=== PATIENT | female | born 1940 | race Caucasian/White ===

== ENCOUNTER 2025-05-16 11:22 | Emergency (ER) | payer MEDICARE, SELFPAY ==
--- NOTE | ~2025-05-16 | CT_ITS ---
CLINICAL HISTORY: LLQ Pain; R o divertic CT abdomen and pelvis with contrast Comparison: None provided Findings: Lung bases are clear. No acute bony abnormalities. Degenerative change spine and bilateral hips. Findings are greatest in the right hip joint. Prior right hip fracture repair hardware noted. Large paraesophageal hiatal hernia partially visualized. Small presumed hepatic cysts scattered throughout liver. No significant focal abnormality in liver or spleen. Pancreas and adrenal glands unremarkable. Cholelithiasis without gallbladder distention. No significant focal renal abnormalities. No renal stones or hydronephrosis. Abdominal aorta is normal in caliber. No free fluid or adenopathy in the pelvis. No diverticulitis. Appendix unremarkable. Hysterectomy. No adnexal abnormality. Impression: No acute process This document has been electronically signed by: Lucas Duarte MD on 05/16/2025 20:24:14
[2025-05-16 11:37] VITALS: BP 113/69; PULSE 104; RESP 16; TEMP 36.5; O2SAT 95; BMI 25.9
--- NOTE | 2025-05-16 11:38 | ED.GENADULT ---
HPI - General Adult General Chief complaint: Nausea/Vomiting/Diarrhea Stated complaint: diarrhea Time Seen by Provider: 05/16/25 18:07 Source: patient Mode of arrival: ambulatory Limitations: no limitations History of Present Illness ED Provider: Dami GUERIN HPI narrative: The patient is an 84-year-old female presenting to the ED reporting since Tuesday she has been experiencing watery brown diarrhea without associated hematochezia, melena, nausea, vomiting, chest pain, shortness of breath, fever/chills, or recent sick contacts. The patient reports she was able to eat toast the 1st few days however over the past 1-2 days has only been tolerating p.o. fluids. The patient denies any recent hospital admission or antibiotic use, reports remote history of hysterectomy, denies other surgical abdominal history. The patient denies associated hematuria or dysuria, but does report urinary frequency which she is attributing to coffee intake. Related Data Previous Rx's ?Medication ?Instructions ?Recorded acetaminophen 500 mg capsule 1,000 mg (2 x 500 mg) PO .q8 PRN 05/16/25 fever or pain #30 caps cephalexin 500 mg capsule 500 mg PO BID #14 caps 05/16/25 ibuprofen 600 mg tablet 600 mg PO Q8H PRN fever or pain 05/16/25 #30 tabs Allergies Allergy/AdvReac Type Severity Reaction Status Date / Time No Known Allergies Allergy Verified 05/16/25 11:41 Review of Systems Review of Systems: Yes all other systems are reviewed and are negative PMFSH Social History Social History Smoked in Last 30 Days: No Use of substances other than those prescribed or required for medical reasons: No Advance Directives: No Advance Directives Information Provided: No Do you have a plan to hurt others: No Plan Physical Exam ED Vital Signs: Vital Signs - 24 hr 05/16/25 11:37 05/16/25 17:45 05/16/25 20:01 Temperature 97.7 F 97.7 F 97.5 F Pulse Rate 104 H 80 94 Respiratory Rate 16 22 H 15 Blood Pressure 113/69 139/69 130/75 Pulse Oximetry 95 97 98 Oxygen Delivery Method Room Air Room Air Room Air BMI result Body Mass Index 25.9 CONSTITUTIONAL: The patient appears non-toxic, well nourished and in no acute distress. Vital signs as documented. HEAD: Atraumatic, normocephalic. EYES: EOMs grossly intact, pupils equal, conjunctiva clear, no exudate. ENT: Nares patent, no discharge. Airway patent, no audible stridor, visible mucosa is pink and moist without noted lesions. NECK: Trachea is midline, no obvious masses or gross abnormalities. CHEST: Symmetric movement, normal appearance. LUNGS: LS present and CTAB, no w/r/r. Non-labored work of breathing. CARDIAC: Regular Rhythm, S1/S2 appreciated, no murmurs, rubs or gallops. ABDOMEN: Abdomen soft x4 quadrants, positive tenderness to palpation of the left lower quadrant, negative rebound, no palpable masses or organomegaly. Negative CVAT bilaterally. : Deferred. EXTREMITIES: Normal tone, moves all extremities spontaneously without reported pain. No obvious acute injury or deformity noted. NEURO: Alert and oriented x3, CN II-XII appear grossly intact. Cerebellar Functioning grossly intact. No obvious sensory or motor deficits. Speech clear and appropriate. PSYCH: normal affect, appropriate eye contact, fluid speech, with appropriate response to questioning. No reported suicidality or homicidality. SKIN: Warm, dry, color appropriate, normal turgor. No rashes noted. Course Course Course Narrative: This is a rapid medical exam performed by Emery Rae NP: Additional HPI, ROS, PE not included below will be deferred to primary provider. Patient is an 84y/o F with reported hx of hypothyroid, HTN, high cholesterol presenting with complaint of diarrhea for the past 4 days. Denies nausea/vomiting. Lower abdominal pain. Denies recent abx use. Plan: labs, UA Medications Administered Discontinued Medications Generic Name Dose Route Start Last Admin Trade Name Murrayq PRN Reason Stop Dose Admin Ceftriaxone Sodium 1 gm 05/16/25 18:50 05/16/25 19:13 Ceftriaxone Sodium 1 Gm Vial IVPUSH 05/16/25 18:51 1 gm ONCE ONE Administration Sodium Chloride 1,000 mls @ 999 mls/hr 05/16/25 18:45 05/16/25 19:43 Ns IV 05/16/25 19:45 Infused .Q1H1M GUEVARA Infusion Sodium Chloride 1,000 mls @ 999 mls/hr 05/16/25 19:00 05/16/25 20:45 Ns IV 05/16/25 20:00 Infused .Q1H1M GUEVARA Infusion Iohexol 85 ml 05/16/25 19:04 05/16/25 19:05 Iohexol 350 Mg/Ml 100 Ml Infus..Btl IV 05/16/25 19:05 85 ml ONCE ONE Administration Medical Decision Making Medical Decision Making [facility] Narrative: 6:46 PM 05/16/2025 (Shoaib GUERIN): The the patient is an 84-year-old female presenting to the ED for evaluation of 4 days of nonbloody diarrhea without associated fever, vomiting, or nausea. The patient in the ED is well-appearing, exam reveals mild left lower quadrant abdominal tenderness, negative CVA tenderness. Patient has laboratory evaluation shows leukocytosis of 14.9, no anemia or electrolyte abnormality. The patient's lactic acid is 1.7, renal function appears mildly impaired with BUN 26 creatinine 1.46, no old for comparison. The patient's viral swab is negative. Patient's UA shows leukocyte esterase, WBCs, and 4+ bacteria. Patient may be suffering from UTI versus diverticulitis. Patient arrives to the ED tachycardic but normotensive, suspect patient's renal function and tachycardia is secondary to fluid dehydration from recurrent diarrhea and not sepsis from UTI. The patient will receive IV fluid hydration, we will begin empiric Rocephin for suspected UTI, however given the patient's equivocal left lower quadrant tenderness we will obtain CT abdomen and pelvis to rule out diverticulitis. 9:45 PM 05/16/2025 (Shoaib GUERIN): The patient's CT was obtained and shows no acute intra-abdominal pathology, no colitis or evidence of diverticulitis. While awaiting CT results the patient experienced 2 episodes of diarrhea, RN advised it was quite malodorous, sample was sent for C diff testing. The patient's C diff testing is now returned and is negative. The patient continues to be well-appearing, afebrile, and normotensive, we will discharge with cephalexin for UTI and recommend outpatient follow-up with strict return instructions.. Admission/Observation Consideration of admission/observation: Escalation of care including admission/observation considered Lab Data [facility] Lab Attestation statement: I reviewed the patient's lab results. 05/16/25 12:37 05/16/25 12:37 Labs: Lab Results 05/16/25 05/16/25 05/16/25 Range/Units 12:35 12:37 17:50 WBC 14.9 H (4.8-10.8) X10*3/uL RBC 5.51 H (4.20-5.50) X10*6/uL Hgb 16.8 H (12.0-16.0) g/dl Hct 48.3 H (37.0-47.0) % MCV 87.7 (80.0-98.0) fL MCH 30.5 (27.0-33.0) pg MCHC 34.8 (31.0-35.0) g/dl RDW 12.7 (11.0-16.0) % Plt Count 355 (160-400) X10*3/uL MPV 9.1 L (9.4-12.3) fL Immature Gran % (Auto) 0.4 (0.0-0.4) % Neut % (Auto) 85.1 H (45-73) % Lymph % (Auto) 7.4 L (20-40) % Antelope % (Auto) 6.3 (2-11) % Eos % (Auto) 0.5 (0-4) % Baso % (Auto) 0.3 (0-2) % Lymph # (Auto) 1.1 L (1.2-4.9) X10*3/uL Antelope # (Auto) 0.9 (0.1-1.2) X10*3/uL Eos # (Auto) 0.1 (0.0-0.4) X10*3/uL Baso # (Auto) 0.0 (0.0-0.2) X10*3/uL Abs Immat Gran (auto) 0.06 H (0.00-0.03) X10*3/uL Absolute Neuts (auto) 12.7 H (2.0-8.3) x10*3/uL Absolute Nucleated RBC 0.000 (0.0-0.012) X10*3/uL Nucleated RBC % (auto) 0.0 (0.0-0.2) /100WBC Sodium 136 (135-145) mmol/L Potassium 4.4 (3.3-5.1) mmol/L Chloride 106 (96-108) mmol/L Carbon Dioxide 20 L (22-29) mmol/L Anion Gap 14 (12-20) BUN 26 H (9-16) mg/dL Creatinine 1.46 H (0.5-1.4) mg/dL Estim Creat Clear Calc 21.4 Estimated GFR 34 Random Glucose 120 H (60-115) mg/dL Lactic Acid 1.7 (0.5-2.0) mmol/L Calcium 8.9 (8.4-10.2) mg/dL Magnesium 2.0 (1.6-2.6) mg/dL Total Bilirubin 0.6 (0.0-1.0) mg/dL AST 24 (5-31) U/L ALT < 6 (0-31) U/L Alkaline Phosphatase 81 (39-117) U/L Total Protein 6.3 L (6.5-8.0) g/dL Albumin 3.8 (3.5-5.0) g/dL Urine Color Dark Yellow Urine Appearance Cloudy Urine pH 5.5 (5.0-9.0) Ur Specific [place] 1.020 (1.005-1.025) Urine Protein 100 (2+) H (Neg-Trace) mg/dL Urine Glucose (UA) Negative (Negative) mg/dL Urine Ketones 40 (Negative) mg/dL Urine Blood Negative (Negative) Urine Nitrite Negative (Negative) Ur Leukocyte Esterase Large (3+) H (Negative) Urine RBC 0-2 (0-2) /HPF Urine WBC 21-50 H (0-5) /HPF Ur Squamous Epith Cells 11-20 (0-2) /HPF Urine Bacteria 4+ (None Seen) Hyaline Casts >20 (0-2) /LPF C. difficile Tox B Gene (Negative) Influenza Type A (PCR) NEGATIVE (Negative) Influenza Type B (PCR) NEGATIVE (Negative) RSV RNA Qual (PCR) NEGATIVE (Negative) SARS-CoV-2 RNA (RT-PCR) NEGATIVE (Negative) 05/16/25 Range/Units 20:46 WBC (4.8-10.8) X10*3/uL RBC (4.20-5.50) X10*6/uL Hgb (12.0-16.0) g/dl Hct (37.0-47.0) % MCV (80.0-98.0) fL MCH (27.0-33.0) pg MCHC (31.0-35.0) g/dl RDW (11.0-16.0) % Plt Count (160-400) X10*3/uL MPV (9.4-12.3) fL Immature Gran % (Auto) (0.0-0.4) % Neut % (Auto) (45-73) % Lymph % (Auto) (20-40) % Antelope % (Auto) (2-11) % Eos % (Auto) (0-4) % Baso % (Auto) (0-2) % Lymph # (Auto) (1.2-4.9) X10*3/uL Antelope # (Auto) (0.1-1.2) X10*3/uL Eos # (Auto) (0.0-0.4) X10*3/uL Baso # (Auto) (0.0-0.2) X10*3/uL Abs Immat Gran (auto) (0.00-0.03) X10*3/uL Absolute Neuts (auto) (2.0-8.3) x10*3/uL Absolute Nucleated RBC (0.0-0.012) X10*3/uL Nucleated RBC % (auto) (0.0-0.2) /100WBC Sodium (135-145) mmol/L Potassium (3.3-5.1) mmol/L Chloride (96-108) mmol/L Carbon Dioxide (22-29) mmol/L Anion Gap (12-20) BUN (9-16) mg/dL Creatinine (0.5-1.4) mg/dL Estim Creat Clear Calc Estimated GFR Random Glucose (60-115) mg/dL Lactic Acid (0.5-2.0) mmol/L Calcium (8.4-10.2) mg/dL Magnesium (1.6-2.6) mg/dL Total Bilirubin (0.0-1.0) mg/dL AST (5-31) U/L ALT (0-31) U/L Alkaline Phosphatase (39-117) U/L Total Protein (6.5-8.0) g/dL Albumin (3.5-5.0) g/dL Urine Color Urine Appearance Urine pH (5.0-9.0) Ur Specific [place] (1.005-1.025) Urine Protein (Neg-Trace) mg/dL Urine Glucose (UA) (Negative) mg/dL Urine Ketones (Negative) mg/dL Urine Blood (Negative) Urine Nitrite (Negative) Ur Leukocyte Esterase (Negative) Urine RBC (0-2) /HPF Urine WBC (0-5) /HPF Ur Squamous Epith Cells (0-2) /HPF Urine Bacteria (None Seen) Hyaline Casts (0-2) /LPF C. difficile Tox B Gene NEGATIVE (Negative) Influenza Type A (PCR) (Negative) Influenza Type B (PCR) (Negative) RSV RNA Qual (PCR) (Negative) SARS-CoV-2 RNA (RT-PCR) (Negative) Radiology Impression Discussion of test interpretation with radiology: I have reviewed the radiologist's reading. Radiologist Impression: CLINICAL HISTORY: LLQ Pain; R o divertic CT abdomen and pelvis with contrast Comparison: None provided Findings: Lung bases are clear. No acute bony abnormalities. Degenerative change spine and bilateral hips. Findings are greatest in the right hip joint. Prior right hip fracture repair hardware noted. Large paraesophageal hiatal hernia partially visualized. Small presumed hepatic cysts scattered throughout liver. No significant focal abnormality in liver or spleen. Pancreas and adrenal glands unremarkable. Cholelithiasis without gallbladder distention. No significant focal renal abnormalities. No renal stones or hydronephrosis. Abdominal aorta is normal in caliber. No free fluid or adenopathy in the pelvis. No diverticulitis. Appendix unremarkable. Hysterectomy. No adnexal abnormality. Impression: No acute process This document has been electronically signed by: Lucas Duarte MD on 05/16/2025 20:24:14 Prescription Management I considered prescription management with: Antibiotic Discharge Plan Discharge Clinical Impression: Acute UTI (urinary tract infection), Dehydration, Diarrhea Patient Disposition: Home, Self-Care Instructions: Dehydration (ED), Acute Diarrhea (ED), Urinary Tract Infection in Older Adults (ED) Additional Instructions: Thank you for choosing [facility]'s Emergency Department for your care today. Thankfully your CT today showed no evidence of diverticulitis, bowel obstruction, or other acute intra-abdominal process requiring surgical intervention, admission to the hospital or continued ED observation, and it is safe to discharge you home. Your laboratory evaluation showed evidence of mild dehydration, you received IV fluids in the emergency department. Your stool testing showed no evidence of infection with Clostridium difficile. Your urinalysis today did show evidence of a urinary tract infection which may be causing inflammation of your colon resulting in your diarrhea. Please take cephalexin as prescribed until it is finished. You may take alternating (staggered) doses of ibuprofen 600mg and Tylenol 1000mg every 4 hours as needed for any additional pain. Please stay well hydrated and get plenty of rest. Please follow up with your primary care physician for re-evaluation, additional management of your symptoms, and continued preventative care. If you do not have a primary care physician, please call the [facility] at [phone] to establish a new primary care physician. While waiting to establish your new primary care physician, you can call our [facility] at [phone] for non-emergency needs. Please return to the emergency department if you develop a severe or sudden change in your symptoms, a fever over 100.4 that does not improve with Tylenol or Ibuprofen, recurrent vomiting, or any other new or worsening symptoms or concerns. Prescriptions: New ibuprofen 600 mg tablet 600 mg PO Q8H PRN (Reason: fever or pain) Qty: 30 0RF acetaminophen 500 mg capsule 1,000 mg PO .q8 PRN (Reason: fever or pain) Qty: 30 0RF cephalexin 500 mg capsule 500 mg PO BID Qty: 14 0RF Referrals: Ford Santiago MD [Primary Care Provider, Internal Medicine] Clinical Impression: Diarrhea; Acute UTI (urinary tract infection) Print Language: Greenlandic
[2025-05-16 12:44] LABS: MANUAL DIFF FLAG NO
[2025-05-16 12:45] LABS: Hematocrit 48.3 % (37.0-47.0); Hemoglobin 16.8 g/dl (12.0-16.0); Imm Gran Abs Auto 0.06 X10*3/uL (0.00-0.03); Imm Gran Pct Auto 0.4 % (0.0-0.4); Lymphocytes Absolute Auto 1.1 X10*3/uL (1.2-4.9); Mean Corpuscular HGB Conc 34.8 g/dl (31.0-35.0); Mean Corpuscular Hemoglobin 30.5 pg (27.0-33.0); Mean Corpuscular Volume 87.7 fL (80.0-98.0); NRBC Abs Auto 0.000 X10*3/uL (0.0-0.012); NRBC Pct Auto 0.0 /100WBC (0.0-0.2); Platelet Count 355 X10*3/uL (160-400); Red Blood Count 5.51 X10*6/uL (4.20-5.50); White Blood Count 14.9 X10*3/uL (4.8-10.8)
[2025-05-16 13:04] LABS: Alanine Aminotransferase < 6 U/L (0-31); Albumin Level 3.8 g/dL (3.5-5.0); Alkaline Phosphatase 81 U/L (39-117); Anion Gap 14 (12-20); Aspartate Amino Transferase 24 U/L (5-31); Blood Urea Nitrogen 26 mg/dL (9-16); Calcium 8.9 mg/dL (8.4-10.2); Carbon Dioxide 20 mmol/L (22-29); Chloride 106 mmol/L (96-108); Creatinine Clr Calc Pharmacy 21.4; Estimated Glomerular Filt Rate 34; Magnesium 2.0 mg/dL (1.6-2.6); Potassium 4.4 mmol/L (3.3-5.1); Sodium 136 mmol/L (135-145); Total Protein 6.3 g/dL (6.5-8.0)
[2025-05-16 13:32] LABS: Resp Syncy Virus RNA Qual PCR NEGATIVE (Negative); SARS COV2 PCR INHOUSE NEGATIVE (Negative)
[2025-05-16 17:45] VITALS: BP 139/69; PULSE 80; RESP 22; TEMP 36.5; O2SAT 97
[2025-05-16 17:59] LABS: Appearance Urine Cloudy; Glucose Urine UA Negative (Negative); PH 5.5 (5.0-9.0); Specific Gravity - Urine 1.020 (1.005-1.025); UMIC TRIGGER UACC YES
[2025-05-16 18:07] LABS: UACC Culture Trigger YES
[2025-05-16] MEDS: iohexoL 350 MG/ML 100 ML INFUS..BTL 85 ML IV (19:05)
[2025-05-16 20:01] VITALS: BP 130/75; PULSE 94; RESP 15; TEMP 36.4; O2SAT 98
[2025-05-16 20:48] VITALS: BP 127/69; PULSE 93
[2025-05-16 20:49] VITALS: BP 134/79; PULSE 93; RESP 16; TEMP 36.6; O2SAT 97
[2025-05-16 21:37] LABS: CDiff Gene PCR NEGATIVE (Negative)
--- NOTE | 2025-05-16 22:06 | PC.NURSE ---
ambulated steadily to bathroom without assist
[2025-05-16 22:08] VITALS: BP 134/79; PULSE 93; RESP 16; TEMP 36.6; O2SAT 97
[2025-05-17 09:04] LABS: E. coli EAEC Not Detected (Not Detect.); E. coli EPEC Not Detected (Not Detect.); E. coli ETEC Not Detected (Not Detect.); E. coli STEC Not Detected (Not Detect.); Shigella sp./EIEC Not Detected (Not Detect.)
== END 2025-05-16 22:29 | disposition home or self-care (01) ==
PROVIDERS: Physician Assistant; Registered Nurse Emergency; Emergency Provider Internal Medicine; PCP Family Medicine
DX: N39.0 Urinary tract infection, site not specified (principal); E86.0 Dehydration; R11.2 Nausea with vomiting, unspecified; R19.7 Diarrhea, unspecified; Z79.899 Other long term (current) drug therapy; Z03.818 Encounter for observation for suspected exposure to other biological agents ruled out
CPT/HCPCS: 36415; 74177; 80053; 81001; 83605; 83735; 85025; 87040; 87086; 87493; 87507; 87637; 96361; 96374; 99284; 99285; J0696; Q9967

== ENCOUNTER → 2025-05-16 18:37 | Outpatient (BNV) | payer MEDICARE, SELFPAY | PROVIDERS: Emergency Provider Internal Medicine; PCP Family Medicine; Visit Provider Radiology Diagnostic Radiology | DX: R10.32 Left lower quadrant pain (principal) | CPT/HCPCS: 74177 ==